=== PATIENT | female | born 1980 | race Caucasian/White ===

== ENCOUNTER 2021-09-10 14:17 | Outpatient (CLI) | payer OTHER ==
--- NOTE | 2021-09-13 09:10 | Vascular Lab Report ---
Bilateral lower extremity Doppler venous ultrasound with insufficiency INDICATION: Thrombosis FINDINGS: Common femoral veins, superficial femoral veins and popliteal veins have normal compressibi lity and phasic flow. There is diffuse reflux within the deep vein system with reflux time 1.79 seconds and common femoral vein, 0.59 seconds in the femoral vein 0.04 seconds and popliteal vein on the right. On the left ther e is 2.9 cm reflux in the EIV, 4 seconds of reflux common femoral vein and 3 seconds of reflux and fe moral vein. IMPRESSION: 1. No evidence for thrombosis in lower extremities. 2. Reflux and lower extremities most significant in the veins as described above. Signer Name: Armand Mead MD Signed: 09/13/2021 9:05 AM Workstation Name: [id number]
--- NOTE | 2021-09-13 09:12 | Vascular Lab Report ---
Bilateral lower extremity arterial ultrasound INDICATION: Disorders of the arteries FINDINGS: Right: Biphasic and triphasic waveforms are seen throughout the right lower extremity. There is a velocity o f 1 76 cm/s in the distal iliac. In the DPA velocity is 39 cm/s. Left: Biphasic and triphasic waveforms are seen throughout the left lower extremity. Waveforms appear multi phasic and patent. IMPRESSION: Multiphasic waveforms and patency of bilateral lower extremity vessels. Signer Name: Armand Mead MD Signed: 09/13/2021 9:07 AM Workstation Name: [id number]
== END 2021-09-10 14:18 | disposition home or self-care (01) ==
LOC: VAS 14:17 → US 14:17 → VAS 14:18
PROVIDERS: ATTEND Internal Medicine
DX: I10 Essential (primary) hypertension (principal)
CPT/HCPCS: 93925; 93970